=== PATIENT | male | born 1960 | race Caucasian/White ===

== ENCOUNTER 2022-12-01 11:34 | Emergency (ER) | payer OTHER, SELFPAY ==
[2022-12-01 11:39] VITALS: BP 141/93; PULSE 63; RESP 18; TEMP 36.9; O2SAT 98; BMI 26.4
[2022-12-01] MEDS: FLUORESCEIN 1 MG STRIP EYE-RIGHT (15:03)
[2022-12-01 15:04] VITALS: BP 150/87; PULSE 62; RESP 18; O2SAT 97
--- NOTE | 2022-12-01 15:36 | ED_ITS ---
HPI - Eye Problem General Chief complaint: Eye Problems Stated complaint: fell last night and injured rt side eye and face Time Seen by Provider: 12/01/22 15:28 Source: patient Mode of arrival: Ambulatory Limitations: no limitations History of Present Illness HPI Narrative: This is a 62-year-old male who presents with complaint of facial abrasion and some injection and discomfort of his right eye. Patient states yesterday he was attempting to clear hives bees he had knocked down came back later with the these were less active grabbed the be hive ran to a throw it in a pond and when he was turning to run away got dizzy and fell. Patient states he hit the right side of his face he had some abrasions and some gravel. He felt like there was a little gravel in his eye he states his who is an ER nurse was picking some out. He states it actually feels better today no longer feels like there is any foreign body in it. He is noticed some injection along the lids. Patient states headache, no neck pain, no chest pain or shortness of breath with this. He states no loss of consciousness. States he remembers falling and hitting the ground. He denies any numbness tingling or weakness. No nausea or vomiting. No diarrhea constipation, no urinary symptoms. Patient states no changes to vision. He notes on visual acuity his opposite eye was worse than his affected eye today. Patient states he does not follow up with ophthalmology regularly. Patient states his noticed a little bit of change in the white portion at the 7 o'clock position. He also notes that he has a hole in the iris on his left eye from where a piece of metal hit it and he had surgery. States his tetanus is up-to-date in the last 5 years. No known drug allergies. He lives in [place]. Related Data Previous Rx's Medication Instructions Recorded ofloxacin 0.3 % eye drops 2 drp EYE-RIGHT .q4hwa 7 days #5 mL 12/01/22 Allergies Allergy/AdvReac Type Severity Reaction Status Date / Time No Known Drug Allergies Allergy Verified 12/01/22 11:39 Review of Systems Review of Systems ROS Unobtainable: All systems reviewed & are unremarkable except as noted in HPI and below Patient History Social History Smoking Status: Former smoker Smoking Status: Former smoker Substance Use Type: does not use Exam Narrative Exam Narrative: GEN: well nourished, well appearing male, alert and oriented x 3, patient appears to be in mild distress. 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 No swelling, nontender abrasions are scabbed no large laceration appreciated, pupils are equal round reactive to light, extraocular movements are intact, nares are clear, TMs are clear with no fluid, there is no conjunctival pallor. Throat is clear without any exudates, erythema, tonsillar enlargement or uvular deviation Visual acuity: right [20/40], left [20/70] without correction. General: no globe trauma Eyelids: normal inspection, eyelids everted for exam on on right patient has some slight injection of the edges of the right upper and lower lid, no swelling appreciated. Conjunctiva/Sclera: normal inspection on the left, some slight injection. Corneas: normal inspection, examined with fluroscein on the right, patient has no uptake over the cornea, he has a small irregular semi circular spot at the 7 o'clock position of the sclera just outside the iris, no waterfall sign, appears to be very mild amount of uptake. EOM: intact, no palsy/entrapment Pupils: PERRL, normal accomadation, pupil normal Anterior Chambers: normal inspection, no hypema Posterior: normal fundoscopic on bilaterally Cervical vertebral tenderness. HEART: Regular rate and rhythm without murmur, clicks, rubs. LUNGS:Lungs clear to auscultation, no wheezes, rales, crackles, chest moves symmetrically ABD:bowel sounds normal, soft, non-tender, no guarding, rebound, rigidity, no masses noted, no hepatosplenomegaly MSCL: Non-tender, no muscle atrophy, muscles strength 5/5 upper and lower extremities, full range of motion, normal gait NEURO:CN 2-12 intact, sensation normal Initial Vital Signs Initial Vital Signs: Vital Signs Temperature 98.4 F 12/01/22 11:39 Pulse Rate 63 12/01/22 11:39 Respiratory Rate 18 12/01/22 11:39 Blood Pressure 141/93 H 12/01/22 11:39 Pulse Oximetry 98 12/01/22 11:39 Oxygen Delivery Method Room Air 12/01/22 11:39 Course Orders Ordered: Discontinued Medications Fluorescein Sodium (Fluorescein 1 Mg Strip) 1 mg EYE-RIGHT NOW ONE Stop: 12/01/22 12:00 Last Admin: 12/01/22 15:03 Dose: 1 mg Documented By: ALEXI Proparacaine HCl (Proparacaine 0.5% Ophth [place]) 1 drops EYE-RIGHT NOW ONE Stop: 12/01/22 15:51 Last Admin: 12/01/22 15:52 Dose: 1 drops Documented By: AMU Vital Signs Vital signs: Vital Signs - 8 hr 12/01/22 11:39 12/01/22 15:04 Temperature 98.4 F Pulse Rate 63 62 Respiratory Rate 18 18 Blood Pressure 141/93 H 150/87 H Pulse Oximetry 98 97 Oxygen Delivery Method Room Air Room Air MDM - Eye Problem MDM Narrative Medical decision making narrative: 62-year-old male presents with concern for possible injury to his right eye. Patient had a fall has some abrasions abrasions had some gravel in his eye none isn't appreciated currently he has a little bit of injection, possible small a brasion over the sclera but the cornea itself is intact, his vision is 20 40 on the right 20 70 on the left which is the unaffected eye. Patient does have a history of injury to the left eye itself remotely. Patient does not appear to have any globe rupture, no signs of infection plan for antibiotic drops, follow up with Ophthalmology with recheck. Patient denied discussed return precautions. All questions answered. Discharge Plan Departure Patient Disposition: Home Clinical Impression: Abrasion of sclera of right eye Instructions: DI for Corneal Abrasion Activity Restrictions/Additional Instructions: Follow-up Saturday with Ophthalmology, referral is included below. Call after 9:0 0 a.m. to set up follow-up on Saturday. Your evaluation today shows what appears to be a scleral abrasion, the cornea itself appears intact with no uptake or signs of injury or abrasion. I do not see any persistent foreign bodies. Please do your best to avoid bees and have a good day. Use antibiotic eye drops as directed. Continue for 7 days unless directed otherwise by Ophthalmology. [facility] on [address]. Please return for new or worsening pain of the eye, redness, swelling, discharge, vision changes or loss, new redness, swelling of the face or other new or concerning changes. Prescriptions: New ofloxacin 0.3 % drops 2 drp EYE-RIGHT .q4hwa 7 Days Qty: 5 0RF Referrals: Chemo Martinez MD [Physician] - Stand Alone Forms: Patient Portal/API
[2022-12-01] MEDS: PROPARACAINE 0.5% OPHTH SOL 1 DROPS EYE-RIGHT (15:52)
== END 2022-12-01 16:14 | disposition home or self-care (01) ==
PROVIDERS: Emergency Provider Emergency Medicine
DX: S05.8X1A Other injuries of right eye and orbit, initial encounter (principal)
CPT/HCPCS: 99282